=== PATIENT | male | born 1990 | race American Indian/Alaskan Native ===

== ENCOUNTER 2018-01-20 23:02 | Emergency (ER) | payer OTHER ==
[2018-01-20 23:02] VITALS: BMI 25.8
--- NOTE | 2018-01-20 23:35 | C.PDOC ---
History Of Present Illness 27yo male, comes to ER stating his sister recently committed suicide and he feels angry. He denies any homicidal or suicidal ideation. Patient admits to THC use but denies any hallucinations. He has no medical complaints. Time Seen by Provider: 01/20/18 23:09 Chief Complaint (Nursing): Psychiatric Evaluation History Per: Patient History/Exam Limitations: no limitations Associated Symptoms: Anger. denies: Suicidal Thoughts, Suicidal Plan Past Medical History Reviewed: Historical Data, Nursing Documentation, Vital Signs Vital Signs: Last Vital Signs Temp 98.4 F 01/20/18 23:07 Pulse 73 01/20/18 23:07 Resp 20 01/20/18 23:07 BP 122/88 01/20/18 23:07 Pulse Ox 100 01/20/18 23:35 - Medical History PMH: Bipolar Disorder, Depression, Schizophrenia Denies: Anxiety, Diabetes, Hepatitis, HIV, HTN, Personality Disorder, Chronic Kidney Disease, Seizures, Sexually Transmitted Disease Surgical History: No Surg Hx Family History: States: No Known Family Hx - Social History Hx Tobacco Use: Yes Hx Alcohol Use: Yes (Socially.) Hx Substance Use: Yes - Immunization History Hx Tetanus Toxoid Vaccination: No (not sure of last tetanus) Hx Influenza Vaccination: No Hx Pneumococcal Vaccination: No Review Of Systems Except As Marked, All Systems Reviewed And Found Negative. Constitutional: Negative for: Fever, Chills Cardiovascular: Negative for: Chest Pain Respiratory: Negative for: Shortness of Breath Gastrointestinal: Negative for: Vomiting, Abdominal Pain Psych: Positive for: Other (anger). Negative for: Suicidal ideation Physical Exam - Physical Exam Appears: Non-toxic Skin: Normal Color Head: Normacephalic Eye(s): bilateral: Normal Inspection Neck: Supple Chest: Symmetrical Cardiovascular: Rhythm Regular Respiratory: Normal Breath Sounds Gastrointestinal/Abdominal: Normal Exam, Soft Back: Normal Inspection Extremity: Normal ROM, No Pedal Edema Neurological/Psych: Oriented x3 ED Course And Treatment O2 Sat by Pulse Oximetry: 100 (RA) Pulse Ox Interpretation: Normal Medical Decision Making Medical Decision Making: Assessment: Depression Plan: * Crisis evaluation 0100 -case s/o to Dr. Shelton pending crisis evaluation and disposition Disposition - Disposition Disposition Time: 01:00 Condition: STABLE Forms: [employer] (Bel[place]ian) - Clinical Impression Clinical Impression: Depression - Scribe Statement The provider has reviewed the documentation as recorded by the Kingsley Garcia Provider Attestation: All medical record entries made by the Kingsley were at my direction and personally dictated by me. I have reviewed the chart and agree that the record accurately reflects my personal performance of the history, physical exam, medical decision making, and the department course for this patient. I have also personally directed, reviewed, and agree with the discharge instructions and disposition.
[2018-01-21 00:54] LABS: BASO # 0.1 K/uL (0.0-0.2); BASO % 0.9 % (0.0-2.0); EOS % 0.4 % (0.0-4.0); HEMOGLOBIN 15.3 g/dL (12.0-18.0); LYMPH # 2.2 K/uL (1.0-4.3); MEAN CORPUSCULAR HEMOGLOBIN 27.8 pg (27.0-31.0); MEAN CORPUSCULAR HGB CONC 34.3 g/dL (33.0-37.0); MEAN PLATELET VOLUME 9.7 fL (7.2-11.7); MONO # 0.9 K/uL (0.0-0.8); NEUT # 6.7 K/uL (1.8-7.0); NEUT % 67.7 % (50.0-75.0); RBC 5.52 Mil/uL (4.40-5.90); RED CELL DISTRIBUTION WIDTH 13.2 % (11.5-14.5); WHITE BLOOD COUNT 9.9 K/uL (4.8-10.8)
[2018-01-21 01:04] LABS: URINE BILIRUBIN NEGATIVE (NEGATIVE); URINE BLOOD NEGATIVE (NEGATIVE); URINE CLARITY Hazy (Clear); URINE COLOR Amber (YELLOW); URINE GLUCOSE (UA) NORMAL (Normal); URINE LEUKOCYTE ESTERASE 1+ Leu/uL (Negative); URINE PROTEIN 1+ mg/dL (NEGATIVE)
[2018-01-21 01:11] LABS: ALB/GLOB RATIO 1.5 (1.0-2.1); ALBUMIN 4.7 g/dL (3.5-5.0); ALT/SGPT 68 U/L (21-72); AST/SGOT 99 U/L (17-59); BLOOD UREA NITROGEN 15 mg/dL (9-20); CALCIUM 9.2 mg/dl (8.6-10.4); GFR NON-AFRICAN AMERICAN > 60
[2018-01-21 01:58] LABS: BARBITURATES, UR NEGATIVE (NEGATIVE); BENZODIAZEPINES, UR NEGATIVE (NEGATIVE); OPIATES, UR NEGATIVE (NEGATIVE); PHENCYCLIDINE, UR NEGATIVE (NEGATIVE)
[2018-01-21 03:08] VITALS: BP 121/69; PULSE 80; RESP 18; TEMP 97.4; O2SAT 99
== END 2018-01-21 03:12 | disposition home or self-care (01) ==
LOC: C.ER 23:02
DX: F32.9 Major depressive disorder, single episode, unspecified (principal)

== ENCOUNTER 2018-01-21 21:48 | Emergency (ER) | payer OTHER ==
[2018-01-21 21:49] VITALS: BMI 25.8
[2018-01-21 22:01] VITALS: BP 143/81; PULSE 121; RESP 20; TEMP 98.8; O2SAT 100
== END 2018-01-21 21:58 | disposition left against medical advice (07) ==
LOC: C.ER 21:48
DX: Z02.89 Encounter for other administrative examinations (principal)